=== PATIENT | female | born 1945 | race Caucasian/White ===

== ENCOUNTER 2016-06-07 16:31 | Emergency (ER) | payer OTHER ==
[~2016-06-07] VITALS: Ht 152.4 cm; Wt 62.1 kg
[~2016-06-07 16:31] MED LIST: 378 PO; ALENDRONATE SOD70 M3 PO; AMLODIPINE BES2.5 M1 PO; AMLODIPINE5 M1 PO; BENAZEPRIL HYDR20 M1 PO; BENAZEPRIL HYDR40 M1 PO; CEL100 PO; CELEBREX50 MG PO; COL100 PO; HYDROCODONE BIT1 T54 PO; LAC PO; LOT10 PO; MAC100 PO; METOPROLOL TART25 M1 PO; NAPROSYN500 MG PO; NOR10T PO; PANTOPRAZOLE SO40 M1 PO; PRI20 PO; PROZ20 PO; TIZANIDINE HCL4 MG PO; TIZANIDINE2 MG PO; VITC PO; ZAN4 PO
[2016-06-07 21:09] LABS: BASOPHIL % 0.3 % (0-2); PLATELET COUNT 241 x10^3mcL (130-400); RED CELL DISTRIBUTION WIDTH 13.6 % (11.5-14.5)
[2016-06-07 21:11] LABS: UA SPECIFIC GRAVITY 1.025 (1.005-1.035); microscopic required? YES; urine erythrocyte TRACE (NEGATIVE)
[2016-06-07 21:22] LABS: CALCIUM 9.2 mg/dL (8.5-10.1); CHLORIDE SERUM 106 mmol/L (98-107); CREATININE SERUM 1.2 mg/dL (0.6-1.0); GLUCOSE SERUM 91 mg/dL (74-106); POTASSIUM SERUM 4.5 mmol/L (3.5-5.1); SODIUM SERUM 141 mmol/L (136-145)
[2016-06-07 21:28] LABS: ALKALINE PHOSPHATASE 59 U/L (46-116); ALT/SGPT 17 U/L (14-59); AMYLASE 51 U/L (25-115); AST/SGOT 13 U/L (15-37); BILIRUBIN TOTAL 0.45 mg/dL (0.20-1.00); LIPASE 144 IU/L (73-393); TOTAL PROTEIN, SERUM 7.7 g/dL (6.4-8.2)
[2016-06-08 01:15] VITALS: BP 139/81
== END 2016-06-08 01:15 | disposition home or self-care (01) ==
LOC: ED 16:31
PROVIDERS: Emergency Medicine
DX: N39.0 Urinary tract infection, site not specified (principal); R19.7 Diarrhea, unspecified; I10 Essential (primary) hypertension; M19.90 Unspecified osteoarthritis, unspecified site; I49.9 Cardiac arrhythmia, unspecified; Z79.899 Other long term (current) drug therapy; Z88.2 Allergy status to sulfonamides; Z88.8 Allergy status to other drugs, medicaments and biological substances
CPT/HCPCS: Q0162

== ENCOUNTER 2018-08-18 12:51 | Emergency (ER) | payer OTHER ==
[~2018-08-18] VITALS: Ht 152.4 cm; Wt 66.7 kg
[2018-08-18 13:01] VITALS: Ht 152.4 cm; Wt 66.7 kg
[2018-08-18 15:28] VITALS: BP 131/75
== END 2018-08-18 15:28 | disposition home or self-care (01) ==
LOC: ED 12:51
DX: N39.0 Urinary tract infection, site not specified (principal); I10 Essential (primary) hypertension; G89.29 Other chronic pain; M54.9 Dorsalgia, unspecified; M19.90 Unspecified osteoarthritis, unspecified site; Z91.041 Radiographic dye allergy status; Z88.2 Allergy status to sulfonamides